=== PATIENT | female | born 1980 | race Caucasian/White ===

== ENCOUNTER 2021-10-28 09:44 | Emergency (ER) | payer OTHER ==
[~2021-10-28] VITALS: Ht 162.6 cm; Wt 69.9 kg
[2021-10-28] MEDS ORDERED: LACTATED RINGERS 1,000 ML IV STA (10:15)
[2021-10-28] MEDS ORDERED: ANTACID SUSP 30 ML UDC (MYLANTA) PO ONE (10:15)
[2021-10-28] MEDS ORDERED: LIDOCAINE 2% VISCOUS 15 ML UDC PO ONE (10:15)
--- NOTE | 2021-10-28 10:15 | ED General ---
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 A little bit of back story, the patient had COVID roughly 1 month ago shortly after her was diagnosed with COVID. She had mild symptoms relatively. Last night she began developing a what she describes as a migraine headache which is not too infrequ ent with some associated nausea. She went to bed and woke up around 3 AM with chest discomfort on the right side of her chest that was sharp in nature and worse with a deep breath. Never had pain like this before. It then woke her up again an hour later. Since then has been more intermittent but continues especially with the breathing. Denies any prior history of cardiac disease, no prior DVT or PE, no recent surgery, no hemoptysis, no fever, vomiting, change in her diarrhea, recent long travel, shortness of breath, abdominal pain, or any other concerns. She does have a degree of diarrhea daily with her inflammatory bowel disease, but it has not changed Allergies and Home Medications Allergies Coded Allergies: Sulfa (Sulfonamide Antibiotics) (Verified Allergy, Unknown, 10/28/21) Patient Home Medication List Home Medication List Reviewed: Yes Review of Systems Review of Systems Constitutional: No chills, No fever EENTM: No blurred vision Respiratory: No cough, No hemoptysis Gastrointestinal: No diarrhea; nausea; No vomiting Genitourinary: no symptoms reported Musculoskeletal: no symptoms reported Skin: no symptoms reported Psychiatric/Neurological: Headache Hematologic/Lymphatic: No Symptoms Reported Immunological/Allergic: no symptoms reported All Other Systems Reviewed Negative Unless Noted: Yes Past [id number] Hx Patient Social History Tobacco Use?: No Past Medical History Surgeries: Yes Section, Gallbladder, Orthopedic Physical Exam Vital Signs Vital Signs - First Documented 10/28/21 09:45 Temp 36.1 Pulse 71 Resp 18 B/P (MAP) 118/82 (94) O2 Delivery Room Air Capillary Refill : Height, Weight, BMI Height: '" Weight: lbs. oz. kg; BMI Method: General Appearance: No Apparent Distress, WD/WN Eyes: Bilateral Eye Normal Inspection HEENT: PERRL/EOMI, Normal ENT Inspection, Pharynx Normal Neck: Full Range of Motion, Normal Inspection, Non Tender Respiratory: Chest Non Tender, Lungs Clear, Normal Breath Sounds, No Accessory Muscle Use, No Respiratory Distress Cardiovascular: Regular Rate, Rhythm, No Edema, Normal Peripheral Pulses Gastrointestinal: Normal Bowel Sounds, Non Tender, Soft; No Distended, No Guarding Back: Normal Inspection, No CVA Tenderness Extremity: Normal Capillary Refill, Normal Inspection, Normal Range of Motion, Non Tender, No Calf Tenderness, No Pedal Edema Neurologic/Psychiatric: Alert, Oriented x3, No Motor/Sensory Deficits, Normal 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, 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 Norm as Tested Skin: Normal Color, Warm/Dry Lymphatic: No Adenopathy Progress/Results/Core Measures Suspected Sepsis SIRS Temperature: Pulse: Respiratory Rate: Laboratory Tests 10/28/21 10:14: White Blood Count 5.6 Blood Pressure / Mean: Laboratory Tests 10/28/21 10:14: Creatinine 0.89, Platelet Count 165, Total Bilirubin 1.2H Results/Orders Lab Results Laboratory Tests Test 10/28/21 10:14 Range/Units White Blood Count 5.6 4.3-11.0 10^3/uL Red Blood Count 3.83 3.80-5.11 10^6/uL Hemoglobin 12.6 11.5-16.0 g/dL Hematocrit 37 35-52 % Mean Corpuscular Volume 97 80-99 fL Mean Corpuscular Hemoglobin 33 25-34 pg Mean Corpuscular Hemoglobin Concent 34 32-36 g/dL Red Cell Distribution Width 12.9 10.0-14.5 % Platelet Count 165 130-400 10^3/uL Mean Platelet Volume 11.7 9.0-12.2 fL Immature Granulocyte % (Auto) 0 % Neutrophils (%) (Auto) 70 42-75 % Lymphocytes (%) (Auto) 20 12-44 % Monocytes (%) (Auto) 9 0-12 % Eosinophils (%) (Auto) 1 0-10 % Basophils (%) (Auto) 1 0-10 % Neutrophils # (Auto) 3.9 1.8-7.8 X 10^3 Lymphocytes # (Auto) 1.1 1.0-4.0 X 10^3 Monocytes # (Auto) 0.5 0.0-1.0 X 10^3 Eosinophils # (Auto) 0.0 0.0-0.3 10^3/uL Basophils # (Auto) 0.0 0.0-0.1 10^3/uL Immature Granulocyte # (Auto) 0.0 0.0-0.1 10^3/uL D-Dimer 0.34 0.00-0.49 UG/ML Sodium Level 136 135-145 MMOL/L Potassium Level 4.1 3.6-5.0 MMOL/L Chloride Level 101 98-107 MMOL/L Carbon Dioxide Level 23 21-32 MMOL/L Anion Gap 12 5-14 MMOL/L Blood Urea Nitrogen 15 7-18 MG/DL Creatinine 0.89 0.60-1.30 MG/DL Estimat Glomerular Filtration Rate 70 BUN/Creatinine Ratio 17 Glucose Level 88 70-105 MG/DL Calcium Level 9.1 8.5-10.1 MG/DL Corrected Calcium 8.8 8.5-10.1 MG/DL Total Bilirubin 1.2 H 0.1-1.0 MG/DL Aspartate Amino Transf (AST/SGOT) 15 5-34 U/L Alanine Aminotransferase (ALT/SGPT) 11 0-55 U/L Alkaline Phosphatase 58 40-136 U/L Troponin I < 0.30 <0.30 NG/ML Pro-B-Type Natriuretic Peptide 49.0 <75.0 PG/ML Total Protein 7.0 6.4-8.2 GM/DL Albumin 4.4 3.2-4.5 GM/DL Lipase 41 8-78 U/L My Orders Orders - RAFAELA ORR MD Cbc With Automated Diff (10/28/21 10:12) Comprehensive Metabolic Panel (10/28/21 10:12) Fibrin Degradation Products (10/28/21 10:12) Lipase (10/28/21 10:12) Probnp Fs (10/28/21 10:12) Troponin I Fs (10/28/21 10:12) Ed Iv/Invasive Line Start (10/28/21 10:12) Ekg Tracing (10/28/21 10:12) Monitor-Rhythm Ecg Trace Only (10/28/21 10:12) Urine Bedside (10/28/21 10:12) Chest Pa/Lat (2 View) (10/28/21 10:12) Lidocaine 2% Viscous 15 Ml (Xylocaine Vi (10/28/21 10:15) Antacid Suspension (Mylanta Suspension (10/28/21 10:15) Lactated Ringers (Lr 1000 Ml Iv Solution (10/28/21 10:15) Ketorolac Injection (Toradol Injection) (10/28/21 11:30) Dexamethasone Injection (Decadron Inje (10/28/21 11:30) Medications Given in ED Current Medications Medications Dose Ordered Sig/Inga Route Start Time Stop Time Status Last Admin Dose Admin Al Hydrox/Mg Hydrox/Simethicone 30 ml ONCE ONCE PO 10/28/21 10:15 10/28/21 10:16 DC 10/28/21 10:15 30 ML Lidocaine HCl 15 ml ONCE ONCE PO 10/28/21 10:15 10/28/21 10:16 DC 10/28/21 10:15 15 ML Vital Signs/I&O 10/28/21 10/28/21 09:45 09:45 Temp 36.1 Pulse 71 Resp 18 B/P (MAP) 118/82 (94) O2 Delivery Room Air Room Air Capillary Refill : Progress Note : Progress Note 41-year-old female with above history coming in due to chest discomfort as well as headache. ABCs were intact and vitals were stable on presentation. Physical exam reassuring, and specifically she is afebrile without meningismus. Have a very low suspicion for meningitis at this time. Nonfocal neuro exam as well. Her headache has no red flags, and is not super uncommon for her to get h eadaches. An IV was placed and she was given a bolus of IV fluids, IV Toradol, and Decadron for her headache which did improve it. For her chest discomfort, EKG without any ischemic changes, negative troponin, normal BNP, and age- adjusted D-dimer is normal. She is overall low risk for PE as well. Heart score is 1 and overall very low suspicion for ACS. Chest x-ray without any obvious pneumothorax or pneumonia on my interpretation. She was given a GI cocktail as well, and chest discomfort is completely gone. Overall I believe she is stable for discharge with outpatient follow-up. She was sent home with strict return precautions peer ECG Initial ECG Impression Date: Oct 28, 2021 Initial ECG Impression Time: 10:07 Initial ECG Rate: 65 Initial ECG Rhythm: Normal Sinus Comment Narrow QRS, normal axis, no significant ST changes or T wave abnormalities Diagnostic Imaging Diagonstic Imaging: Xray Plain Films/CT/US/NM/MRI: chest Comments Chest x-ray 2 view ordered and interpreted by me showing no obvious pneumothorax, pneumonia, normal cardiac silhouette Departure Impression Primary Impression: Headache Qualified Codes: R51.9 - Headache, unspecified Additional Impression: Chest pain Qualified Codes: R07.9 - Chest pain, unspecified Disposition: 01 HOME, SELF-CARE Condition: Stable Departure-Patient Inst. Decision time for Depature: 11:30 Patient Instructions: Chest Pain, Adult ED Add. Discharge Instructions: You were seen in the emergency department for chest discomfort as well as headache. Fortunately, your labs are reassuring and it does not appear like you had a heart attack or had a blood clot. Your chest x-ray is clear and your EKG looks good. 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 If you have any concerns she can either call your regular doctor or come back to the ER. RAFAELA ORR MD Oct 28, 2021 10:15
[2021-10-28 10:34] LABS: HEMATOCRIT 37 % (35-52); HEMOGLOBIN 12.6 g/dL (11.5-16.0); MEAN CORPUSCULAR HEMOGLOBIN 33 pg (25-34); MEAN CORPUSCULAR HGB CONC 34 g/dL (32-36); MEAN CORPUSCULAR VOLUME 97 fL (80-99); MEAN PLATELET VOLUME 11.7 fL (9.0-12.2); PLATELET COUNT 165 10^3/uL (130-400); WHITE BLOOD COUNT 5.6 10^3/uL (4.3-11.0)
[2021-10-28 10:35] LABS: BASOPHILS % (AUTO) 1 % (0-10); EOSINOPHILS % (AUTO) 1 % (0-10); LYMPHOCYTES % (AUTO) 20 % (12-44); MONOCYTES % (AUTO) 9 % (0-12); NEUTROPHILS % (AUTO) 70 % (42-75)
[2021-10-28 10:36] LABS: LYMPHOCYTES # (AUTO) 1.1 X 10^3 (1.0-4.0); MONOCYTES # (AUTO) 0.5 X 10^3 (0.0-1.0); NEUTROPHILS # (AUTO) 3.9 X 10^3 (1.8-7.8)
[2021-10-28 10:54] LABS: BUN/CREATININE RATIO 17; CALCIUM 9.1 MG/DL (8.5-10.1); CARBON DIOXIDE 23 MMOL/L (21-32); CHLORIDE 101 MMOL/L (98-107); CREATININE SERUM 0.89 MG/DL (0.60-1.30); GFR ESTIMATED 70; GLUCOSE 88 MG/DL (70-105); POTASSIUM 4.1 MMOL/L (3.6-5.0); SODIUM 136 MMOL/L (135-145)
[2021-10-28 10:55] LABS: ALANINE AMINOTRANSFERASE 11 U/L (0-55); ALBUMIN 4.4 GM/DL (3.2-4.5); ALKALINE PHOSPHATASE 58 U/L (40-136); BILIRUBIN,TOTAL 1.2 MG/DL (0.1-1.0); LIPASE 41 U/L (8-78)
[2021-10-28] MEDS ORDERED: KETOROLAC 30 MG/ML VIAL IVP ONE (11:30)
[2021-10-28 11:52] VITALS: BP 120/77
--- NOTE | 2021-11-01 14:01 | Diagnostic Imaging Report ---
INDICATION: Right-sided chest pain. TIME OF EXAM: 10:20 AM No prior studies are available for comparison. FINDINGS: The heart size is normal. The pulmonary vascularity is unremarkable. The lungs are clear. No infiltrate, effusion or pneumothorax is detected. IMPRESSION: No acute cardiopulmonary process is detected. Dictated by: Dictated on workstation # [id number]
== END 2021-10-28 11:52 | disposition home or self-care (01) ==
LOC: ER FS 09:46
DX: R51.9 Headache, unspecified (principal); R07.9 Chest pain, unspecified; Z86.16 Personal history of COVID-19
CPT/HCPCS: 36415; 71046; 80053; 83690; 83880; 84484; 85025; 85379; 93041